=== PATIENT | male | born 1970 | race Caucasian/White ===

== ENCOUNTER 2018-05-24 16:59 | Emergency (ER) | payer OTHER ==
[~2018-05-24] VITALS: Ht 172.7 cm; Wt 77.1 kg
[2018-05-24 17:39] LABS: BASOPHILS ABSOLUTE AUTO 0.08 K/mm3 (0.00-0.23); BASOPHILS PERCENT AUTO 1 % (0-2); EOSINOPHILS ABSOLUTE AUTO 0.01 K/mm3 (0.00-0.68); EOSINOPHILS PERCENT AUTO 0 % (0-6); Hematocrit 36.2 % (37.0-53.0); Hemoglobin 13.2 g/dL (13.5-17.5); IMMATURE GRAN ABSOLUTE AUTO 0.03 K/mm3 (0.00-0.10); IMMATURE GRAN PERCENT AUTO 0 % (0-1); LYMPHOCYTES ABSOLUTE AUTO 0.42 K/mm3 (0.84-5.20); LYMPHOCYTES PERCENT AUTO 5 % (21-46); MONOCYTES PERCENT AUTO 10 % (4-13); Mean Corpuscular HGB 33.4 pg (26.0-34.0); Mean Corpuscular HGB Conc 36.5 g/dL (31.5-36.5); Mean Corpuscular Volume 92 fL (80-100); Mean Platelet Volume 9.1 fL (9.1-12.4); NEUTROPHILS ABSOLUTE AUTO 6.64 K/mm3 (1.96-9.15); NEUTROPHILS PERCENT AUTO 83 % (41-73); Platelet Count 163 K/mm3 (150-400); RDW Coefficient Variation 12.7 % (11.7-14.2); RDW Standard Deviation 42.7 fL (35.1-46.3); Red Blood Cell Count 3.95 M/mm3 (4.30-5.90); White Blood Cell Count 7.98 K/mm3 (4.00-11.30)
[2018-05-24 18:01] LABS: Alanine Aminotransfer (ALT/SGP 202 U/L (12-78); Albumin, Blood 4.5 g/dL (3.4-5.0); Albumin/Globulin Ratio 1.2 (0.8-1.8); Alk Phos 75 U/L (50-136); Anion Gap 14 mmol/L (6-16); Aspartate Aminotrans (AST/SGOT 205 U/L (12-37); Blood Urea Nitrogen 7 mg/dL (8-24); Bun/Creatinine Ratio 10.5 (12.0-20.0); CO2, Blood 25 mmol/L (21-32); Calcium, Blood 8.9 mg/dL (8.5-10.1); Chloride, Blood 85 mmol/L (98-108); Creatinine, Blood 0.67 mg/dL (0.60-1.20); Ethanol (Alcohol), Blood, Med <3 mg/dL; Globulin, Blood 3.8 g/dL (2.2-4.0); Glomerular Filtration Rate >60 (60-); Glucose, Blood 184 mg/dL (70-99); Potassium, Blood 3.6 mmol/L (3.5-5.5); Sodium, Blood 124 mmol/L (136-145); Total Protein, Blood 8.3 g/dL (6.4-8.2); Troponin I <0.015 ng/mL (0.000-0.040)
== END 2018-05-24 21:26 | disposition home or self-care (01) ==
LOC: ER 16:59
PROVIDERS: Emergency Medicine
DX: R56.9 Unspecified convulsions (principal); F10.239 Alcohol dependence with withdrawal, unspecified; E87.1 Hypo-osmolality and hyponatremia; I10 Essential (primary) hypertension; Y90.0 Blood alcohol level of less than 20 mg/100 ml
CPT/HCPCS: 70450; 80053; 84484; 85025; 93005; 93010; 96360; 99284; G0480; J7030

== ENCOUNTER 2021-09-24 03:35 | Inpatient (IN) | payer OTHER ==
[~2021-09-24] VITALS: Ht 175.3 cm; Wt 76.3 kg
[2021-09-24] MEDS ORDERED: AMLO5 PO (03:49)
[2021-09-24] MEDS ORDERED: TAMS.4ER PO (03:50)
[2021-09-24] MEDS ORDERED: CATAPRES0.1 MG PO (03:50)
[2021-09-24] MEDS ORDERED: FINA5 PO (03:50)
[2021-09-24 04:06] LABS: BASOPHILS ABSOLUTE AUTO 0.04 K/mm3 (0.00-0.23); BASOPHILS PERCENT AUTO 0 % (0-2); EOSINOPHILS ABSOLUTE AUTO 0.01 K/mm3 (0.00-0.68); EOSINOPHILS PERCENT AUTO 0 % (0-6); IMMATURE GRAN ABSOLUTE AUTO 0.22 K/mm3 (0.00-0.10); IMMATURE GRAN PERCENT AUTO 2 % (0-1); LYMPHOCYTES ABSOLUTE AUTO 1.71 K/mm3 (0.84-5.20); LYMPHOCYTES PERCENT AUTO 18 % (21-46); MONOCYTES ABSOLUTE AUTO 1.24 K/mm3 (0.16-1.47); MONOCYTES PERCENT AUTO 13 % (4-13); Mean Corpuscular HGB 36.1 pg (26.0-34.0); Mean Corpuscular HGB Conc 37.3 g/dL (31.5-36.5); Mean Corpuscular Volume 97 fL (80-100); Mean Platelet Volume 9.2 fL (9.1-12.4); NEUTROPHILS ABSOLUTE AUTO 6.34 K/mm3 (1.96-9.15); NEUTROPHILS PERCENT AUTO 66 % (41-73); NRBC ABSOLUTE 0.04 K/mm3 (0.00-0.02); NRBC Auto 0.4 /100 WBC (0.0-0.2); Platelet Count 148 K/mm3 (150-400); RDW Coefficient Variation 12.9 % (11.7-14.2); RDW Standard Deviation 44.3 fL (35.1-46.3); Red Blood Cell Count 1.47 M/mm3 (4.30-5.90); White Blood Cell Count 9.56 K/mm3 (4.00-11.30)
[2021-09-24 04:08] LABS: Hematocrit 14.2 % (37.0-53.0); Hemoglobin 5.3 g/dL (13.5-17.5)
[2021-09-24 04:31] LABS: Triiodothyronine, Free 2.31 pg/mL (2.18-3.98)
[2021-09-24 04:38] LABS: Alanine Aminotransfer (ALT/SGP 43 U/L (12-78); Albumin, Blood 2.7 g/dL (3.4-5.0); Albumin/Globulin Ratio 1.1 (0.8-1.8); Alk Phos 45 U/L (50-136); Anion Gap 8 mmol/L (6-16); Aspartate Aminotrans (AST/SGOT 35 U/L (12-37); Bilirubin, Total 0.4 mg/dL (0.1-1.0); Blood Urea Nitrogen 16 mg/dL (8-24); Bun/Creatinine Ratio 37.2 (12.0-20.0); CO2, Blood 27 mmol/L (21-32); Calcium, Blood 8.5 mg/dL (8.5-10.1); Chloride, Blood 84 mmol/L (98-108); Creatinine, Blood 0.43 mg/dL (0.60-1.20); Globulin, Blood 2.5 g/dL (2.2-4.0); Glomerular Filtration Rate >60 (60-); Glucose, Blood 138 mg/dL (70-99); Potassium, Blood 3.1 mmol/L (3.5-5.5); Sodium, Blood 119 mmol/L (136-145); Total Protein, Blood 5.2 g/dL (6.4-8.2)
[2021-09-24 04:56] LABS: SARS-Cov-2 (COVID-19) PCR, MMC NEGATIVE (NEGATIVE)
[2021-09-24 10:54] LABS: Source, Urine Voided
[2021-09-24 11:00] LABS: Appearance, Urine Clear (Clear); Bilirubin, Urine Neg (Neg); Blood, Urine Neg (Neg); Color, Urine Yellow (P-Yellow); Glucose Qualitative, Urine 1+ (Neg); Ketones, Urine 1+ (Neg); Leukocyte Esterase, Urine Neg (Neg); Nitrite, Urine Neg (Neg); Protein, Urine Neg (Neg); Urobilinogen, Urine NORM (Normal); pH, Urine 6.5 (5.0-8.0)
[2021-09-24 15:14] LABS: Hematocrit 19.5 % (37.0-53.0); Hemoglobin 7.2 g/dL (13.5-17.5)
--- NOTE | 2021-09-24 17:45 | NUR ---
PATIENT A/OX3, UP WITH SBA. USING URINAL TO VOID, NO BOWEL MOVEMENT THIS SHIFT. VSS, ON RA. RECEIVED 2 UNITS PRBC'S TODAY. CONTINUES ON PROTONIX AND OCTREOTIDE GTT. NS @ 75ML/HR INFUSING. SKIN INTACT. DENIES ANY PAIN OR DISCOMFORT. GI CONSULT ORDERED, NO DOCTOR ON FOR GI UNTIL 09/27, DR. MONZON AWARE. PATIENT TOLERATING CLEAR LIQUID DIET, FLUID RESTRICTION OF 12OOML/DAY. RECENT FALLS, FALL PRECAUTIONS IN PLACE PER PROTOCOL.
[2021-09-24 18:29] LABS: Hematocrit 20.4 % (37.0-53.0); Hemoglobin 7.4 g/dL (13.5-17.5)
[2021-09-24 21:57] LABS: Hematocrit 19.1 % (37.0-53.0)
[2021-09-25 01:59] LABS: BASOPHILS ABSOLUTE AUTO 0.06 K/mm3 (0.00-0.23); BASOPHILS PERCENT AUTO 1 % (0-2); EOSINOPHILS ABSOLUTE AUTO 0.03 K/mm3 (0.00-0.68); EOSINOPHILS PERCENT AUTO 0 % (0-6); Hematocrit 18.2 % (37.0-53.0); Hemoglobin 6.5 g/dL (13.5-17.5); IMMATURE GRAN ABSOLUTE AUTO 0.06 K/mm3 (0.00-0.10); IMMATURE GRAN PERCENT AUTO 1 % (0-1); LYMPHOCYTES PERCENT AUTO 15 % (21-46); MONOCYTES ABSOLUTE AUTO 0.95 K/mm3 (0.16-1.47); MONOCYTES PERCENT AUTO 13 % (4-13); Mean Corpuscular HGB 32.7 pg (26.0-34.0); Mean Corpuscular HGB Conc 35.7 g/dL (31.5-36.5); Mean Corpuscular Volume 92 fL (80-100); NEUTROPHILS ABSOLUTE AUTO 4.93 K/mm3 (1.96-9.15); NEUTROPHILS PERCENT AUTO 69 % (41-73); NRBC ABSOLUTE 0.02 K/mm3 (0.00-0.02); NRBC Auto 0.3 /100 WBC (0.0-0.2); Platelet Count 151 K/mm3 (150-400); RDW Coefficient Variation 16.8 % (11.7-14.2); RDW Standard Deviation 54.6 fL (35.1-46.3); Red Blood Cell Count 1.99 M/mm3 (4.30-5.90); White Blood Cell Count 7.13 K/mm3 (4.00-11.30)
[2021-09-25 02:19] LABS: Ferritin, Serum 192 ng/mL (26-388); Iron Serum 44 ug/dL (65-175); Percent Saturation 18.2 % (20.0-50.0); Total Iron Binding Capacity 242 ug/dL (250-450)
[2021-09-25 02:21] LABS: Alanine Aminotransfer (ALT/SGP 42 U/L (12-78); Albumin, Blood 2.6 g/dL (3.4-5.0); Albumin/Globulin Ratio 1.1 (0.8-1.8); Alk Phos 34 U/L (50-136); Anion Gap 7 mmol/L (6-16); Aspartate Aminotrans (AST/SGOT 37 U/L (12-37); Bilirubin, Total 0.5 mg/dL (0.1-1.0); Blood Urea Nitrogen 9 mg/dL (8-24); Bun/Creatinine Ratio 14.6 (12.0-20.0); CO2, Blood 26 mmol/L (21-32); Calcium, Blood 7.4 mg/dL (8.5-10.1); Chloride, Blood 98 mmol/L (98-108); Creatinine, Blood 0.62 mg/dL (0.60-1.20); Globulin, Blood 2.4 g/dL (2.2-4.0); Glomerular Filtration Rate >60 (60-); Glucose, Blood 131 mg/dL (70-99); Potassium, Blood 3.4 mmol/L (3.5-5.5)
[2021-09-25 02:22] LABS: Sodium, Blood 131 mmol/L (136-145)
--- NOTE | 2021-09-25 02:52 | NUR ---
Hgb 6.5 AND WAS 7.4 @ 18:00. HOSPITALIST DR NAVAS ORDERED ONE UNIT PRBC. IV PROTONIX AND IV SANDOSTATIN INFUSING.
--- NOTE | 2021-09-25 04:32 | NUR ---
SHIFT SUMMARY PATIENT Hgb 6.[address] NAVAS ORDERED ONE UNIT OF PRBC. INFUSING. AXOX 3 AND ONE ASSIST TO BR. USES URINAL AT BEDSIDE. PIVS REMAIN INTACT. IV PROTONIX AND SANDOSTATIN INFUSING. NS INFUSING AT 75mL/HR RESTART AFTER PRBC'S. [place]. DENIES PAIN, SOB, AND N/V. MILL CRANE OPERATOR REPORTS NSR 86. FLUID RESTRICTION 1,200 mL. VSS/AFEBRILE. CALL LIGHT IN REACH. BED IN LOWEST POSITION. WILL CONTINUE TO MONITOR UNTIL DAY SHIFT NURSE ASSUMES CARE.
[2021-09-25 07:54] LABS: Hematocrit 22.9 % (37.0-53.0); Hemoglobin 8.2 g/dL (13.5-17.5)
[2021-09-25 08:09] LABS: International Normalized Ratio 1.06; Prothrombin Time Results 11.1 Sec (9.7-11.5)
[2021-09-25 11:05] LABS: Hematocrit 24.5 % (37.0-53.0); Hemoglobin 8.6 g/dL (13.5-17.5)
--- NOTE | 2021-09-25 11:33 | NUR ---
PT RECENTLY TO [facility] BY [facility]. History, Chart, Medications and Allergies reviewed before start of procedure. Lungs clear T/O to Auscultation. Patient confirms NPO status and agrees with scheduled surgery. Pre-Op teaching done. Pt verbalizes understanding.
--- NOTE | 2021-09-25 12:00 | NUR ---
09/25/21 1200 Regina Paredes PATIENT DETERMINED TO BE ASA APPROPRIATE FOR PROPOFOL SEDATION PRIOR TO START OF PROCEDURE BY DR. GODFREY. Bite Block Placed. 3-LEAD EKG REVIEWED WITH PHYSICIAN PRIOR TO START OF PROCEDURE. Patient to ENDO 1. History, Chart, Medications and Allergies reviewed before start of procedure. O2 VIA POM INTACT THROUGHOUT SEDATION/PROCEDURE. MONITOR INTACT WITH CONTINUOUS PULSE OXIMETRY AND INTERMITTENT BP. PER DR. MILLER PT WAS EVALUATED AND OKAYED F0R NURSE SEDATION.
--- NOTE | 2021-09-25 13:12 | NUR ---
DR. MILLER CALLED IN DURING PROCEDURE AND ASSISTED WITH SEDATION EARLY ON DUE TO PT BITING THROUGH BITE BLOCK PRIOR TO SCOPE BEING PLACED NOTED ON FLOW SHEET. PT GIVEN 120MG PROPOFOL AND VERSED 2 MG BY RN THEN DR. MILLER SEDATED WITH ADDITIONAL LARGER DOSES OF PROPOFOL BY DR. MILLER. ONCE PT SEDATED AND SCOPE PLACED DR. MILLER TURNED CARE BACK OVER TO SEDATION RN NOLAN HOGAN AND FRANK HOGAN.
--- NOTE | 2021-09-25 13:45 | NUR ---
PATIENT CAME BACK FROM ENDOSCOPY ACCOMPANIED BY SECURITY. APPARANTLY ANDREW CAME OUT OF SEDATION VERY CONFUSED AND THOUGHT THERE WAS A BOMB IN THE RECOVERY ROOM. PATIENT REMAINS VERY CONFUSED, THINKS HE IS ON A BOAT. [facility] IN [facility] AND PATIENT PULLED OUT HIS IV'S AND WOULD NOT STAY IN BED. USED HIS TEETH TO CUT THE IV TUBING. VERY UNSTEADY ON HIS FEET. CIWA SCORE 11. DR. MONZON NOTIFIED AND ATIVAN ORDERED TO TREAT ALCOHOL WITHDRAWAL SYMPTOMS. B/P ELEVATED, OTHERWISE VSS ON RA. RESTRATED PROTONIX GTT, SANDOSTATIN D/C'D.
[2021-09-25 15:45] LABS: Hematocrit 23.4 % (37.0-53.0); Hemoglobin 8.3 g/dL (13.5-17.5)
--- NOTE | 2021-09-25 17:45 | NUR ---
RECEIVED PT FROM MEDICAL FLOOR VIA BED. PT IN TUFF CUFF X 4 EXTREMITIES. PT CONFUSED AND AGITATED. EDWARDWA 27- MED PT WITH ATIVAN 2 MG IVP X1 UPON ARRIVAL WITH MINIMAL IMPROVEMENT IN SYMPTOMS. PRECEDEX DRIP INITIATED @ 0.4 MCG/KG/MIN. LUNGS CLEAR. ECG SHOWS SR WITH RATE IN THE 90'S. BP TRENDING 140-160'S/90'S. NPO PT CONFUSED AND ALSO DX GIB. PT HAS ATTENDS IN PLACE.
--- NOTE | 2021-09-25 17:58 | NUR ---
PATIENT TRANSFERRED TO ICU 6, REPORT GIVEN TO EDISON POZO. PATIENT IN 4 POINT TOUGH CUFF RESTRAINTS AND DEJUAN. SENT TO ICU FOR PRECEDEX GTT DUE TO ALCOHOL WITHDRAWAL. PATIENT VERY CONFUSED AND AGITATED. ATIVAN GIVEN X2, UNABLE TO GIVE LIBRIUM DUE TO AMS. CONITUNUES ON PROTONIX GTT.
--- NOTE | 2021-09-25 18:20 | NUR ---
CIWA STILL 27 DESPITE PRECEDEX DRIP @ 1.4 MCG/KG/MIN. DR. MONZON UPDATED. PT MED WITH ATIVAN 4 MG IVP X 1.
--- NOTE | 2021-09-25 19:00 | NUR ---
ASSUME CARE NOTE: PT LYING IN BED WITH EYES CLOSED IN 4 POINT NON-VIOLENT RESTRAINTS. PRECEDEX IS INFUSING AT 1/4MCG/KG/HR AND PROTONIX AT 10ML/HR. HE IS WEARING 2L NC AND SATING IN HIGH 90'S. HR IN 60'S AND SBP >160. DAYSHIFT RN JUST GAVE PRN LABETALOL SO WILL REASSESS. CONDOM CATH IN PLACE DRAINING CLEAR YELLOW URINE TO GRAVITY. SEE SHIFT ASSESSMENT FOR DETAILS.
--- NOTE | 2021-09-25 19:15 | NUR ---
PT RESTING QUIETLY WITH PRECEDEX @ 1.4 MCG/KG/MIN. CONDOM CATH PLACED, BUT NO URINE OUTPUT YE. BP TRENDING 180/110'S-DR. MONZON AWARE. LABETOLOL 10 MG IVPX 1 GIVEN. LAB HERE TO DRAW H&H AND PT TOELRATED WELL. REPORT GIVEN TO ONCOMING SHIFT.
[2021-09-25 19:44] LABS: Hematocrit 23.4 % (37.0-53.0); Hemoglobin 8.4 g/dL (13.5-17.5)
[2021-09-25 23:12] LABS: Hematocrit 23.1 % (37.0-53.0); Hemoglobin 8.2 g/dL (13.5-17.5)
--- NOTE | 2021-09-26 00:15 | NUR ---
UPDATE: HYPERTENSION CALLED DR. NAVAS BECAUSE PT'S SBP HAS REMAINED >160 DESPITE 3 DOSES OF LABETALOL. HE GAVE ORDERS FOR HYDRALAZINE 10MG Q6 FOR SBP>160.
[2021-09-26 04:08] LABS: Hematocrit 24.4 % (37.0-53.0); Hemoglobin 8.5 g/dL (13.5-17.5)
[2021-09-26 04:29] LABS: Anion Gap 6 mmol/L (6-16); Blood Urea Nitrogen 6 mg/dL (8-24); Bun/Creatinine Ratio 10.5 (12.0-20.0); CO2, Blood 27 mmol/L (21-32); Calcium, Blood 8.3 mg/dL (8.5-10.1); Chloride, Blood 101 mmol/L (98-108); Creatinine, Blood 0.57 mg/dL (0.60-1.20); Glomerular Filtration Rate >60 (60-); Glucose, Blood 143 mg/dL (70-99); Sodium, Blood 134 mmol/L (136-145)
--- NOTE | 2021-09-26 06:05 | NUR ---
SHIFT SUMMARY: PT REMAINS IN BED WITH EYES CLOSED IN 4 POINT NON-VIOLENT RESTRAINTS. HE IS WEARING 2L NC. PRECEDEX IS STILL INFUSING AT 1.4MCK/KG/HR AND PROTONIX AT 10ML/HR. HIS LAST CIWA SCORE WAS 5. HR AND BP ARE WNL SINCE DOSE OF HYDRALAZINE. CONDOM CATH STILL IN PLACE DRAINING CLEAR YELLOW URINE WITH GOOD OUTPUT. NO BM THIS SHIFT. WILL UPDATE ONCOMING RN WHEN AVAILABLE.
--- NOTE | 2021-09-26 08:57 | NUR ---
ASSUMED PT CARE THIS AM. PT ON PRECEDEX AT 1.4MCG/KG/HR AND 4 PT NONVIOLENT RESTRAINTS SECONDARY TO SEVERE ALOC, CIWA SX THAT EXACERBATED 09/25 S/P SCOPE. PT CURRENTLY SLEEPING. PERRLA, PT OPENS EYE TO VERBAL STIM, MUMBLES INCOHERENTLY, A/O TO SELF, PURPOSEFUL MOVEMENT TO EXTREMITIES. CSM INTACT TO ALL EXTREMITIES. VSS. PT HAS NEEDED HYDRALAZINE AND LABETOLOL IV PRN DURING NOC SHIFT TO MAINTAIN NORMOTENSION. PT ON 2 L NC. ABD DISTENDED, MODERATELY FIRM. PLAN TO TITRATE DOWN ON SEDATION ABLE, AND DC 4 PT RESTRAINTS ABLE. SPOKE WITH PT'S THIS AM AND GAVE HER UPDATE ON PT STATUS AND POC. PT'S STATES THAT PT DRINKS CLOSER TO 12 BEERS OR MORE A DAY, AND THAT HE HAS WITHDRAWAL SX OFTEN AT HOME SUCH TREMORS, AGITATION. PT'S WOULD LIKE MD TO DISCUSS THE SERIOUS HEALTH RISKS OF ETOH WITH PT WHEN HE IS AWAKE, AND ETOH TREATMENT OPTIONS.
--- NOTE | 2021-09-26 10:34 | NUR ---
TITRATING DOWN PRECEDEX, CURRENTLY DOWN TO 1MCG/KG/HR. PT AWAKE, CALM, BUT CONFUSED. A/O TO SELF ONLY, STATES HE IS ON A BEACH; OCCASSIONALLY TUGS AT WRIST RESTRAINTS. PT HAVING HALLUCINATIONS. CIWA GREATER THAN 8; GIVEN ATIVAN IV. ABLE TO DC RESTRAINTS TO BLE. PT SWALLOWS WITHOUT ISSUE, GIVEN PO MEDS.
--- NOTE | 2021-09-26 11:41 | NUR ---
SPOKE WITH MD MONZON RE: PT'S CONCERNS RE: PT'S DRINKING AND SX AT HOME; HYPOKALEMIA; CLARIFIED DIET; AND CLARIFIED THAT MD WANTS PT ON IV LABETOLOL PRN VERSES TRANDATE 100MG PO ORGINALLY ORDERED. NEW ORDERS OBTAINED FOR POTASSIUM AND IVF.
--- NOTE | 2021-09-26 18:10 | NUR ---
SHIFT SUMMARY PT A/O TO SELF THROUGHOUT SHIFT, BUT CONFUSED, IMPULSIVE, WITH CIWA SCORE RANGING FROM 6-14. PT GIVEN ATIVAN 2 MG IV X 2; PRECEDEX TITRATED DOWN TO 1. ABLE TO DOWNGRADE RESTRAINTS TO SOFT WRIST BILAT. VSS, PT ON RA, DENIES PAIN, SOB, NV, NUMBNESS TINGLING. STARTED ON IVF. INCONTINENT OF URINE, DIFFICULTY WITH GETTING CONDOM CATH TO STAY PUT, HOWEVER GOOD UO. K REPLACED.
--- NOTE | 2021-09-26 21:37 | NUR ---
ASSUMED CARE ORIENTED TO SELF. PLEASANT. NOT COMBATIVE. NSR RATE 60s. SBP 130-140 RANGE. RA. LUNGS CLEAR. NO BM SINCE ADMISSION. ABDOMEN MODERATELY DISTENDED. SOFT, NON-TENDER. CONDOM CATH. ADEQUATE OUTPUT. SKIN INTACT. RESTRAINTS STILL IN PLACE. PRECEDEX @ 1 MCG. PROTONIX @ 10 ML/HR.
[2021-09-27 03:44] LABS: BASOPHILS ABSOLUTE AUTO 0.04 K/mm3 (0.00-0.23); BASOPHILS PERCENT AUTO 1 % (0-2); EOSINOPHILS ABSOLUTE AUTO 0.12 K/mm3 (0.00-0.68); EOSINOPHILS PERCENT AUTO 2 % (0-6); IMMATURE GRAN ABSOLUTE AUTO 0.05 K/mm3 (0.00-0.10); IMMATURE GRAN PERCENT AUTO 1 % (0-1); LYMPHOCYTES ABSOLUTE AUTO 0.74 K/mm3 (0.84-5.20); LYMPHOCYTES PERCENT AUTO 12 % (21-46); MONOCYTES PERCENT AUTO 12 % (4-13); Mean Corpuscular HGB 32.7 pg (26.0-34.0); Mean Corpuscular HGB Conc 34.6 g/dL (31.5-36.5); Mean Corpuscular Volume 95 fL (80-100); NEUTROPHILS PERCENT AUTO 73 % (41-73); NRBC ABSOLUTE 0.02 K/mm3 (0.00-0.02); NRBC Auto 0.3 /100 WBC (0.0-0.2); Platelet Count 208 K/mm3 (150-400); RDW Coefficient Variation 17.6 % (11.7-14.2); RDW Standard Deviation 56.8 fL (35.1-46.3); Red Blood Cell Count 2.75 M/mm3 (4.30-5.90); White Blood Cell Count 6.45 K/mm3 (4.00-11.30)
[2021-09-27 04:02] LABS: Alanine Aminotransfer (ALT/SGP 51 U/L (12-78); Albumin, Blood 2.7 g/dL (3.4-5.0); Albumin/Globulin Ratio 0.9 (0.8-1.8); Alk Phos 51 U/L (50-136); Anion Gap 6 mmol/L (6-16); Aspartate Aminotrans (AST/SGOT 29 U/L (12-37); Bilirubin, Total 0.5 mg/dL (0.1-1.0); Blood Urea Nitrogen 6 mg/dL (8-24); Bun/Creatinine Ratio 10.5 (12.0-20.0); CO2, Blood 24 mmol/L (21-32); Calcium, Blood 7.9 mg/dL (8.5-10.1); Chloride, Blood 103 mmol/L (98-108); Creatinine, Blood 0.57 mg/dL (0.60-1.20); Glomerular Filtration Rate >60 (60-); Glucose, Blood 147 mg/dL (70-99); Magnesium, Blood 1.9 mg/dL (1.6-2.4); Phosphorus, Blood 3.3 mg/dL (2.5-4.9); Potassium, Blood 3.4 mmol/L (3.5-5.5); Sodium, Blood 133 mmol/L (136-145); Total Protein, Blood 5.7 g/dL (6.4-8.2)
--- NOTE | 2021-09-27 06:18 | NUR ---
END OF SHIFT NOTE PT IS STARTING TO CLEAR MENTALLY. PT ORIENTED TO PERSON AND TIME, BUT IS STILL SPOTTY. PT WAS ABLE TO REMEMBER SPECIFIC DETAILS FROM CONVERSATIONS THROUGHOUT THE NIGHT. NO AGITATION. NSR 60-70. SBP 100-140. RA, LUNGS CLEAR. PT ABLE TO DRINK WATER. SWALLOW APPROPRIATELY. WILL NEED A DIET ORDER PT IS STARTING TO GET HUNGRY. NO BM. CONDOM CATH. 1400 CLEAR/YELLOW URINE OUT. STILL WEAK BUT MOVES A LOT BETTER. CIWAS <5 ALL EVENING. PRECEDEX OFF AT 0600.
--- NOTE | 2021-09-27 08:53 | NUR ---
ASSUMED PT CARE THIS AM. PT A/OX3, COOPERATIVE AND CALM. RESTRAINTS OFF, PRECEDEX OFF. VSS. SPOKE WITH MD MONZON RE: PT STATUS AND PASSING SWALLOW EVAL AT BEDSIDE BY RN; DIET ORDERED WITH FLUID RESTRICTION. PT STATES HE WOULD LIKE TO GO HOME TODAY IF POSSIBLE.
--- NOTE | 2021-09-27 12:07 | NUR ---
ASSISTED PT TO BSC HE FELT URGE TO DEFECATE. PT WITH SEVERE TREMORS WHEN STANDING. VOIDED, NO BM. ASSISTED BACK TO BED, CIWA REASSESSED, GIVEN 2 MG ATIVAN IV. AT 1200 PT STOOD TO USE URINAL, HR ELEVATED TO 150-170, RN ASSISTED PT BACK TO BED AND PLACED CONDOM CATH SECONDARY TO EXERTION WHEN STANDING. HR BACK TO 90-110.
--- NOTE | 2021-09-27 14:45 | NUR ---
PT UP TO CHAIR WITH FWW AND 1 PERSON ASSIST, TOLERATED WELL. AT BEDSIDE DURING VISITING HOURS. UPDATED ON PT STATUS AND POC.
--- NOTE | 2021-09-27 16:06 | NUR ---
PT REPORTS DIFFICULTY URINATING. BLADDER SCAN VOR VOLUME 850. STRAIGHT CATH WITH OFFSET PRINTING OPERATOR, 1250 UO OBTAINED. PT REPORTS SIGNIFICANT IMPROVEMENT IN COMFORT.
--- NOTE | 2021-09-27 18:01 | NUR ---
SHIFT SUMMARY PT A/OX3-4 THROUGHOUT SHIFT. CALM AND COOPERATIVE. CIWA SCORE 5-14. ATIVAN 2MG IV GIVEN X 2. HR SR-ST 90-110 AT REST. HR UP TO 160S-170S ST WHEN ATTEMPTING TO VOID. PT ABLE TO VOID WELL THIS AM, THEN HAVING DIFFICULTY IN THE AFTERNOON. BLADDER SCANNED AT 1600, 850+ SCANNED, STRAIGHT CATH X1, 1250ML OUT. PT TOLERATED WELL. PT CONTINUES TO VOID SMALL AMOUNTS. PLAN TO CONTINUE BLADDER SCAN Q 4 HRS. PT TOLERATING PO DIET WITHOUT DIFFICULTY. 1200 FR. UP TO CHAIR FOR 3 HRS. PT UNSTEADY ON FEET DUE TO MOD-SEVERE TREMORS. BED ALARAM ON FOR SAFETY.
--- NOTE | 2021-09-27 22:15 | NUR ---
ASSUMED CARE AT 1900 PT LAYING IN BED WATCHING TV AT THE CHANGE OF SHIFT. PT IS A&O X3; NOT SPECIFICALLY TO EVENT OF GOING THROUGH ETOH W/D; CAN BE IMPULSIVE AND NOT USE THE CALL LIGHT APPROPRIATLY. SPO2 > 98% ON RA. DURING EXERTION PT HR INCREASES TO THE 150-170'S AND IS ASYMPTOMATIC; ONCE BACK TO A RESTING STATE, HR RETURNS TO 100-120. BP STABLE. FREQUENTLY FEELS THE URGENCY TO URINATE, HAS URINATED 100-200ML EVERY 1-2 HOURS. CIWA 5 R/T UNSTEADINESS AND TREMORS EXPERIENCED DURING TRANSFER TO [facility] FROM BED. SEE SHIFT ASSESSMENT FOR FULL ASSESSMENT.
[2021-09-28 03:36] LABS: BASOPHILS ABSOLUTE AUTO 0.02 K/mm3 (0.00-0.23); BASOPHILS PERCENT AUTO 0 % (0-2); EOSINOPHILS ABSOLUTE AUTO 0.03 K/mm3 (0.00-0.68); EOSINOPHILS PERCENT AUTO 0 % (0-6); Hematocrit 23.5 % (37.0-53.0); Hemoglobin 8.1 g/dL (13.5-17.5); IMMATURE GRAN ABSOLUTE AUTO 0.05 K/mm3 (0.00-0.10); IMMATURE GRAN PERCENT AUTO 1 % (0-1); LYMPHOCYTES PERCENT AUTO 18 % (21-46); MONOCYTES ABSOLUTE AUTO 1.47 K/mm3 (0.16-1.47); MONOCYTES PERCENT AUTO 21 % (4-13); Mean Corpuscular HGB 32.7 pg (26.0-34.0); Mean Corpuscular HGB Conc 34.5 g/dL (31.5-36.5); Mean Corpuscular Volume 95 fL (80-100); Mean Platelet Volume 8.6 fL (9.1-12.4); NEUTROPHILS ABSOLUTE AUTO 4.21 K/mm3 (1.96-9.15); NEUTROPHILS PERCENT AUTO 59 % (41-73); NRBC ABSOLUTE 0.03 K/mm3 (0.00-0.02); NRBC Auto 0.4 /100 WBC (0.0-0.2); Platelet Count 212 K/mm3 (150-400); RDW Coefficient Variation 17.4 % (11.7-14.2); RDW Standard Deviation 59.1 fL (35.1-46.3); Red Blood Cell Count 2.48 M/mm3 (4.30-5.90); White Blood Cell Count 7.08 K/mm3 (4.00-11.30)
[2021-09-28 03:52] LABS: Anion Gap 4 mmol/L (6-16); Blood Urea Nitrogen 7 mg/dL (8-24); Bun/Creatinine Ratio 9.8 (12.0-20.0); CO2, Blood 27 mmol/L (21-32); Calcium, Blood 8.2 mg/dL (8.5-10.1); Chloride, Blood 102 mmol/L (98-108); Creatinine, Blood 0.71 mg/dL (0.60-1.20); Glomerular Filtration Rate >60 (60-); Glucose, Blood 116 mg/dL (70-99); Potassium, Blood 3.3 mmol/L (3.5-5.5); Sodium, Blood 133 mmol/L (136-145)
--- NOTE | 2021-09-28 06:07 | NUR ---
END OF SHIFT SUMMARY NO ACUTE EVENTS OVERNIGHT. PT ABLE TO SLEEP WHEN NOT STIMULATED. A&O X3, USING CALL LIGHT MORE APPROPRIATLY; CIWA'S RANGING FROM 3-5; IMPROVEMENT NOTED TO TREMORS DURING TRANSITIONING FROM BED TO BSC; NO ATIVAN GIVEN THIS SHIFT. AFEBRILE. HR 90-120; HR STILL INCREASING TO 150-160'S DURING EXERTIONS BUT PT CONT TO BE ASYMPTOMATIC AND RECOVERS TO BASELINE HR ONCE RESTING AGAIN. SBP 130-140'S. BM X3 THAT WAS BROWN, FORMED STOOL. URINARY URGENCY GETTING BETTER, OUTPUT OF 1675ML OF URINE THIS SHIFT. WILL REPORT TO AM RN WHEN AVAILABLE.
--- NOTE | 2021-09-28 08:42 | NUR ---
PT HANDOFF REPORT GIVEN TO EDISON BELLA.
[2021-09-28] MEDS ORDERED: PANT40 PO (11:25)
[2021-09-28] MEDS ORDERED: LABE100 PO (11:25)
[2021-09-28] MEDS ORDERED: ACET325 PO (11:26)
== END 2021-09-28 12:20 | disposition home or self-care (01) | DRG 378 ==
LOC: ER 03:35 → ICUE 04:46 → MEDS 04:46 → ER 05:53 → MEDS 06:12 → ICUE 09-25 17:31
PROVIDERS: Emergency Medicine; Family Medicine; Internal Medicine; Student in an Organized Health Care Education/Training Program; ADMIT Internal Medicine
PROC: 0W3P8ZZ Control Bleeding in Gastrointestinal Tract, Via Natural or Artificial Opening Endoscopic (ICD-10-PCS; 2021-09-25)
PROC: 0DB48ZX Excision of Esophagogastric Junction, Via Natural or Artificial Opening Endoscopic, Diagnostic (ICD-10-PCS; principal; 2021-09-25 12:00)
PROC: 0DB78ZX Excision of Stomach, Pylorus, Via Natural or Artificial Opening Endoscopic, Diagnostic (ICD-10-PCS; 2021-09-25 12:00)
PROC: 0DB68ZX Excision of Stomach, Via Natural or Artificial Opening Endoscopic, Diagnostic (ICD-10-PCS; 2021-09-25 12:00)
DX: K26.4 Chronic or unspecified duodenal ulcer with hemorrhage (principal); D62 Acute posthemorrhagic anemia; E87.1 Hypo-osmolality and hyponatremia; F10.251 Alcohol dependence with alcohol-induced psychotic disorder with hallucinations; F10.231 Alcohol dependence with withdrawal delirium; N40.0 Benign prostatic hyperplasia without lower urinary tract symptoms; E87.6 Hypokalemia; R63.1 Polydipsia; K29.40 Chronic atrophic gastritis without bleeding; K22.2 Esophageal obstruction; I10 Essential (primary) hypertension; Z20.822 Contact with and (suspected) exposure to COVID-19; Z86.010 Personal history of colon polyps; Z79.899 Other long term (current) drug therapy; Z90.81 Acquired absence of spleen; Z78.1 Physical restraint status
CPT/HCPCS: 36415; 80048; 80053; 81003; 82728; 83540; 83550; 83735; 83935; 84100; 84300; 84443; 84481; 85014; 85018; 85025; 85610; 86850; 86900; 86901; 86920; 86923; 88305; 88312; 88342; 93005; 93010; 96365; 96375; 99285-25; A9270; C9113; J0171; J0360; J0696; J2060; J2250; J2354; J2704; J3411; J3480; J7030; J7050; J7120; P9016; U0004

== ENCOUNTER 2022-09-09 13:41 | Inpatient (IN) | payer OTHER ==
[~2022-09-09] VITALS: Ht 175.3 cm; Wt 66.1 kg
[~2022-09-09 13:41] MED LIST: ACET325 PO; AMLO5 PO; CATAPRES0.1 MG PO; FINA5 PO; FOLI1 PO; LABE100 PO; PANT40 PO; TAMS.4ER PO
[2022-09-09 14:25] LABS: BASOPHILS ABSOLUTE AUTO 0.11 K/mm3 (0.00-0.23); BASOPHILS PERCENT AUTO 2 % (0-2); EOSINOPHILS ABSOLUTE AUTO 0.05 K/mm3 (0.00-0.68); EOSINOPHILS PERCENT AUTO 1 % (0-6); Hematocrit 33.8 % (37.0-53.0); IMMATURE GRAN ABSOLUTE AUTO 0.05 K/mm3 (0.00-0.10); IMMATURE GRAN PERCENT AUTO 1 % (0-1); LYMPHOCYTES ABSOLUTE AUTO 3.36 K/mm3 (0.84-5.20); LYMPHOCYTES PERCENT AUTO 55 % (21-46); MONOCYTES ABSOLUTE AUTO 0.63 K/mm3 (0.16-1.47); MONOCYTES PERCENT AUTO 10 % (4-13); Mean Corpuscular HGB Conc 35.5 g/dL (31.5-36.5); Mean Corpuscular Volume 99 fL (80-100); NEUTROPHILS ABSOLUTE AUTO 1.92 K/mm3 (1.96-9.15); NEUTROPHILS PERCENT AUTO 31 % (41-73); Platelet Count 320 K/mm3 (150-400); RDW Coefficient Variation 14.2 % (11.7-14.2); RDW Standard Deviation 51.5 fL (35.1-46.3); Red Blood Cell Count 3.43 M/mm3 (4.30-5.90); White Blood Cell Count 6.12 K/mm3 (4.00-11.30)
[2022-09-09 14:43] LABS: Albumin, Blood 3.2 g/dL (3.4-5.0); Albumin/Globulin Ratio 0.9 (0.8-1.8); Bilirubin, Total 0.8 mg/dL (0.1-1.0); Bun/Creatinine Ratio 5.6 (12.0-20.0); Calcium, Blood 8.2 mg/dL (8.5-10.1); Creatinine, Blood 0.54 mg/dL (0.60-1.20); Globulin, Blood 3.5 g/dL (2.2-4.0); Potassium, Blood 3.6 mmol/L (3.5-5.5); Total Protein, Blood 6.7 g/dL (6.4-8.2)
[2022-09-09 14:48] LABS: Magnesium, Blood 2.2 mg/dL (1.6-2.4)
--- NOTE | 2022-09-10 05:11 | NUR ---
SHIFT SUMMARY PT A&OX4, PLEASANT AND COOPERATIVE WITH CARE. MEDICATED WITH TYLENOL FOR SOME CHRONIC PAIN IN HIS LEGS. CURRENTLY ON BEDREST, USING BEDSIDE URINAL TO VOID. PER THE ER, PT IS A 2-ASSIST TO BSC. PT'S BP HAS BEEN ELEVATED, HE STATED NOT TAKING HIS AMLODIPINE SINCE THURSDAY. CIWA HAS BEEN LESS THAN 8 SINCE GETTING TO THE FLOOR, MILD TREMORS IN HANDS. CALLS APPROPRIATELY, CALL LIGHT WITHIN REACH.
[2022-09-10 05:30] LABS: BASOPHILS ABSOLUTE AUTO 0.08 K/mm3 (0.00-0.23); BASOPHILS PERCENT AUTO 1 % (0-2); EOSINOPHILS ABSOLUTE AUTO 0.03 K/mm3 (0.00-0.68); EOSINOPHILS PERCENT AUTO 0 % (0-6); Hematocrit 34.5 % (37.0-53.0); Hemoglobin 12.3 g/dL (13.5-17.5); IMMATURE GRAN ABSOLUTE AUTO 0.04 K/mm3 (0.00-0.10); IMMATURE GRAN PERCENT AUTO 1 % (0-1); LYMPHOCYTES ABSOLUTE AUTO 2.26 K/mm3 (0.84-5.20); LYMPHOCYTES PERCENT AUTO 26 % (21-46); MONOCYTES ABSOLUTE AUTO 0.94 K/mm3 (0.16-1.47); MONOCYTES PERCENT AUTO 11 % (4-13); Mean Corpuscular HGB 35.1 pg (26.0-34.0); Mean Corpuscular HGB Conc 35.7 g/dL (31.5-36.5); Mean Corpuscular Volume 99 fL (80-100); NEUTROPHILS ABSOLUTE AUTO 5.29 K/mm3 (1.96-9.15); NEUTROPHILS PERCENT AUTO 61 % (41-73); Platelet Count 310 K/mm3 (150-400); RDW Coefficient Variation 14.6 % (11.7-14.2); RDW Standard Deviation 52.6 fL (35.1-46.3); White Blood Cell Count 8.64 K/mm3 (4.00-11.30)
[2022-09-10 06:01] LABS: Albumin, Blood 3.2 g/dL (3.4-5.0); Albumin/Globulin Ratio 0.8 (0.8-1.8); Bilirubin, Total 1.4 mg/dL (0.1-1.0); Bun/Creatinine Ratio 3.8 (12.0-20.0); Creatinine, Blood 0.53 mg/dL (0.60-1.20); Globulin, Blood 3.8 g/dL (2.2-4.0); Potassium, Blood 3.5 mmol/L (3.5-5.5)
--- NOTE | 2022-09-10 11:31 | NUR ---
AM NOTE: PATIENT ALERT AND ORIENTED X3-4. AT TIMES MORE CONFUSING STATEMENTS. CIWA RANGE FROM 5-8 THIS AM. NEUROPATHY TO BILATERAL FEET. SPOKE WITH ON PHONE AND PATIENT INJURED BACK A FEW YEARS AGO HIKING AND RUNNING INTO TREE. PATIENT STATES HE HAS PAIN IN BILATERAL LOWER LEGS/CALVES, AT TIMES WORSE THAN OTHERS. ON ROOM AIR SATING ABOVE 95%. LUNGS SOUNDING CLEAR. TELE SHOWING SINUS TACH WITH HR 90-110'S. AT TIMES HR UP TO 130-140'S. WHEN PATIENT TRYING TO USE RESTROOM. SPOKE WITH DR. ESTES REGARDING HR THIS AM, ORDERS TO GIVE 2MG ATIVAN. HR 100-110'S AT THIS TIME. BP SLIGHTLY ELEVATED THIS AM. USING URINAL AND BSC. 2 PERSON ASSIST TO BSC. TOLERATING PO DIET. DENIES ABDOMINAL PAIN/NAUSEA. CALL LIGHT IN REACH. BED ALARM IN PLACE. WILL CONTINUE TO MONITOR.
--- NOTE | 2022-09-10 12:20 | NUR ---
PATIENT WANTING TO GO HOME. DR. ANNE IN TO SEE PATIENT. PATIENT REQUESTING TO GO HOME. PLAN FOR NO LIBRIUM/ATIVAN TILL 1500 AND REASSESS CIWA AT 1500. WILL HOLD OFF ON PRN MEDS AT THIS TIME AND REASSESS CIWA AT [address] ANNE.
--- NOTE | 2022-09-10 15:12 | NUR ---
DR. ANNE CALLED WITH [place] RESULTS. PATIENT SCORING 4. ABLE TO STAND AT EDGE OF BED AND MARCH IN PLACE. PATIENT STILL WANTING TO GO HOME. PLAN FOR DISCHARGE. PATIENT UPDATED. DR. ANNE TO CALL .
[2022-09-10] MEDS ORDERED: GABA300 PO (15:50)
--- NOTE | 2022-09-10 17:14 | NUR ---
DISCHARGE: NO ACITE CHANGES. DR. ANNE CALLED AT 1500 AND UPDATED ON CIWA SCORES. PATIENT OVERALL WITHDRAWL SYMPTOMS IMPROVED SINCE THIS AM. PATIENT ABLE TO AMBULATE WITH THIS RN USING WALKER AROUND ROOM. VITAL SIGNS REMAINS THE SAME WITH ELEVATED HR IN 110'S. DENIES CHEST PAIN/PRESSURE. VERY SMALL TREMOR. IN TO METER ATTENDANT PATIENT. PATIENT AND BOTH EDUCATED ON HOME MEDICATIONS, TAPER DOSE OF GABEPENTIN, FOLLOW UP APPOINTMENTS, ALCOHOL WITHDRAWL SYMPTOMS, REASONS TO COME BACK TO ED OR CALL 911, AND DISCHARGE PACKET EDUCATION. PATIENT LEFT UNIT VIA WHEELCHAIR WITH ALL PERSONAL BELONGINGS INCLUDING DISCHARGE PACKET. IV REMOVED WNL.
== END 2022-09-10 16:08 | disposition home or self-care (01) | DRG 897 ==
LOC: ER 13:41 → PCU 23:50
PROVIDERS: Emergency Medicine; Family Medicine; ADMIT Specialist
PROC: HZ2ZZZZ Detoxification Services for Substance Abuse Treatment (ICD-10-PCS; principal; 2022-09-09)
DX: F10.239 Alcohol dependence with withdrawal, unspecified (principal); E87.1 Hypo-osmolality and hyponatremia; I10 Essential (primary) hypertension; D64.9 Anemia, unspecified; N40.0 Benign prostatic hyperplasia without lower urinary tract symptoms; Z90.49 Acquired absence of other specified parts of digestive tract; Z79.899 Other long term (current) drug therapy; Y90.8 Blood alcohol level of 240 mg/100 ml or more
CPT/HCPCS: 36415; 80053; 83690; 83735; 84100; 85025; 93005; 93010; 94762; 96360; 99285-25; A9270; G0480; J1650; J2060; J3411; J7030

== ENCOUNTER 2023-03-12 07:07 | Day surgery (SDC) | payer OTHER ==
[~2023-03-12] VITALS: Ht 175.3 cm; Wt 85.6 kg
[~2023-03-12 07:07] MED LIST changes: +GABA300 PO; +ROSU10TA PO
--- NOTE | 2023-03-12 07:25 | NUR ---
03/12/23 0725 Nadia Best TETRACAINE TO RIGHT EYE AT 0718 PLEDGET TO RIGHT EYE AT 0720 BY [email or web address].G
[2023-03-12 08:52] VITALS: BP 141/89
== END 2023-03-12 09:12 | disposition home or self-care (01) ==
LOC: ORSCSDS 07:07
PROVIDERS: Ophthalmology
PROC: 08DJ3ZZ Extraction of Right Lens, Percutaneous Approach (ICD-10-PCS; principal; 2023-03-12 08:30)
DX: H25.11 Age-related nuclear cataract, right eye (principal); I10 Essential (primary) hypertension; Z79.899 Other long term (current) drug therapy
CPT/HCPCS: J2001; J2250; J3010; J3301; J7040; V2632

== ENCOUNTER 2023-03-19 07:08 | Day surgery (SDC) | payer OTHER ==
[~2023-03-19] VITALS: Ht 175.3 cm; Wt 84.7 kg
--- NOTE | 2023-03-19 07:44 | NUR ---
03/19/23 0744 Karey Barajas PER ORDERS AT 0726, DENA PER ORDERS AT 0783
[2023-03-19 09:07] VITALS: BP 145/89
== END 2023-03-19 09:05 | disposition home or self-care (01) ==
LOC: ORSCSDS 07:08
PROVIDERS: Ophthalmology
PROC: 08DK3ZZ Extraction of Left Lens, Percutaneous Approach (ICD-10-PCS; principal; 2023-03-19 08:30)
DX: H25.12 Age-related nuclear cataract, left eye (principal); Z96.1 Presence of intraocular lens; I10 Essential (primary) hypertension; Z79.899 Other long term (current) drug therapy
CPT/HCPCS: J2001; J2250; J3010; J3301; J7040; V2632